=== PATIENT | male | born 2000 | race Two or more races ===

== ENCOUNTER 2023-12-19 18:19 | Emergency (ER) | payer OTHER ==
[~2023-12-19] VITALS: Ht 162.6 cm; Wt 61.2 kg
[2023-12-19] MEDS: IV NS 0.9% 1,000 ML BAG IV ONE (19:06)
[2023-12-19 19:07] LABS: BASOPHILS % (AUTO) 0.1 % (0.0-2.0); EOSINOPHILS # (AUTO) 0.1 K/uL (0.0-0.7); EOSINOPHILS % (AUTO) 0.6 % (0.0-6.0); HEMATOCRIT 51 % (39-51); HEMOGLOBIN 16.7 g/dL (13.5-17.5); LYMPHOCYTES # (AUTO) 1.2 K/uL (0.8-4.8); LYMPHOCYTES % (AUTO) 9.2 % (20.0-44.0); MEAN CORPUSCULAR HEMOGLOBIN 29 PG (26.0-33.0); MEAN CORPUSCULAR HGB CONC 33 g/dl (31.0-36.0); MEAN CORPUSCULAR VOLUME 88 fL (80-96); MONOCYTES # (AUTO) 0.4 K/uL (0.1-1.30); MONOCYTES % (AUTO) 2.9 % (2.0-12.0); NEUTROPHILS # (AUTO) 11.3 K/uL (1.8-8.9); NEUTROPHILS % (AUTO) 87.2 % (43.0-81.0); PLATELET COUNT (AUTO) 332 K/uL (150-450); RED BLOOD CELL COUNT(AUTO) 5.81 MIL/uL (4.5-6.0); WHITE BLOOD COUNT (AUTO) 12.9 K/uL (4.3-11.0)
[2023-12-19] MEDS ORDERED: ONDANSETRON HCL/PF 4 MG/2 ML VIAL ONE (19:07)
[2023-12-19] MEDS: ONDANSETRON HCL/PF 4 MG/2 ML VIAL IVP ONE (19:08)
[2023-12-19] MEDS ORDERED: IV NS 0.9% 250 ML IV ONE (19:14)
[2023-12-19] MEDS ORDERED: CT SWABBABLE VALVE TRANS SET 1 EA INFUS.SET MC ONE (19:14)
[2023-12-19] MEDS ORDERED: IOHEXOL-300 100 ML VIAL IV ONE (19:14)
[2023-12-19 19:28] LABS: CALCIUM, SERUM 9.4 mg/dL (8.5-10.1); CREATININE 0.9 mg/dL (0.6-1.3); POTASSIUM 3.2 mmol/L (3.5-5.1)
[2023-12-19 19:34] LABS: ALBUMIN 4.3 g/dL (3.4-5.0); BILIRUBIN,DIRECT 0.3 mg/dL (0.0-0.2); BILIRUBIN,TOTAL 1.4 mg/dL (0.2-1.0); TOTAL PROTEIN, SERUM 8.6 g/dL (6.4-8.2)
[2023-12-19 20:50] LABS: APPEARANCE,URINE CLEAR (CLEAR); BILIRUBIN,URINE NEGATIVE (NEGATIVE); BLOOD, URINE 1+ Ery/uL (NEGATIVE); COLOR,URINE YELLOW (YELLOW); KETONES,URINE 2+ mg/dL (NEGATIVE); LEUKOCYTE ESTERASE ,URINE NEGATIVE (NEGATIVE); NITRITE, URINE NEGATIVE (NEGATIVE); PH,URINE 5.5 (5.0-8.0); PROTEIN,URINE NEGATIVE (NEGATIVE); UGLUCOSE NEGATIVE (NEGATIVE); UROBILINOGEN,URINE 0.2 EU/dL (0.2)
[2023-12-19 21:03] LABS: ADD URINE CULTURE NO; BACTERIA,URINE 1+ /HPF (None Seen); MUCUS,URINE Few /LPF (None Seen); SQUAMOUS EPITHELIAL CELL,UR None Seen /HPF (None Seen); WBC,URINE 0-2 /HPF (0-3)
[2023-12-19 23:19] VITALS: BP 139/64; TEMP 98.2; O2SAT 97
== END 2023-12-19 23:20 | disposition home or self-care (01) ==
LOC: ER 18:40
DX: R10.84 Generalized abdominal pain (principal); R19.7 Diarrhea, unspecified; R11.10 Vomiting, unspecified; E25.0 Congenital adrenogenital disorders associated with enzyme deficiency
CPT/HCPCS: 99285; 74176; 96374; 96361; 85025; 80048; 83690; 80076; 81001; 36415; J2405; J7030; J7050; Q9967

== ENCOUNTER 2025-01-13 14:00 | Emergency (ER) | payer OTHER ==
[~2025-01-13] VITALS: Ht 162.6 cm; Wt 61.2 kg
[2025-01-13 14:09] VITALS: TEMP 98.8
[2025-01-13] MEDS ORDERED: KETOROLAC TROMETHAMINE 15 MG/ML VIAL ONE (14:37)
[2025-01-13] MEDS: IV NS 0.9% 1,000 ML BAG IV ONE (14:41)
[2025-01-13 14:43] LABS: PLATELET COUNT (AUTO) 276 K/uL (150-450); RED BLOOD CELL COUNT(AUTO) 5.28 MIL/uL (4.5-6.0); RED CELL DISTRIBUTION WIDTH 12.9 % (11.5-15.0); WHITE BLOOD COUNT (AUTO) 6.7 K/uL (4.3-11.0)
[2025-01-13 14:56] LABS: CALCIUM, SERUM 9.2 mg/dL (8.5-10.1); CREATININE 1.0 mg/dL (0.6-1.3); SODIUM SERUM 136 mmol/L (136-145); UREA NITROGEN, BLOOD 15 mg/dL (7-18)
[2025-01-13] MEDS: KETOROLAC TROMETHAMINE 15 MG/ML VIAL IV ONE (15:05)
[2025-01-13] MEDS ORDERED: IBUP-76 PO (15:43)
[2025-01-13 16:15] VITALS: BP 132/77; O2SAT 98
== END 2025-01-13 16:16 | disposition home or self-care (01) ==
LOC: ER 14:06
DX: R07.89 Other chest pain (principal); F41.9 Anxiety disorder, unspecified; Z92.3 Personal history of irradiation
CPT/HCPCS: 99285; 96374; 71045; 96361; 93005; 85025; 80048; 85378; 85652; 36415; 84484; 86140; J1885; J7030